=== PATIENT | female | born 1990 | race Two or more races ===

== ENCOUNTER 2024-01-16 12:52 | Observation (INO) | payer OTHER | END 2024-01-16 15:13 | disposition home or self-care (01) | LOC: LDRP 12:52 | PROVIDERS: ADMIT Obstetrics & Gynecology; ATTEND Obstetrics & Gynecology | DX: O24.419 Gestational diabetes mellitus in pregnancy, unspecified control (principal); O99.323 Drug use complicating pregnancy, third trimester; F12.90 Cannabis use, unspecified, uncomplicated; Z3A.36 36 weeks gestation of pregnancy | CPT/HCPCS: 59025; 76818; 81002; 82962; 94760; G0378 ==

== ENCOUNTER 2024-02-06 11:39 | Observation (INO) | payer OTHER ==
[2024-02-06] MEDS ORDERED: PREN-96 PO (11:50)
== END 2024-02-06 13:33 | disposition home or self-care (01) ==
LOC: LDRP 11:39
PROVIDERS: ADMIT Obstetrics & Gynecology; ATTEND Obstetrics & Gynecology
DX: O24.419 Gestational diabetes mellitus in pregnancy, unspecified control (principal); O99.323 Drug use complicating pregnancy, third trimester; F12.90 Cannabis use, unspecified, uncomplicated; Z3A.39 39 weeks gestation of pregnancy
CPT/HCPCS: 59025; 76818; 81002; 82948; 82962; 94760; G0378

== ENCOUNTER 2024-02-09 10:41 | Observation (INO) | payer OTHER ==
[~2024-02-09 10:41] MED LIST: PREN-96 PO
== END 2024-02-09 12:36 | disposition home or self-care (01) ==
LOC: LDRP 10:41 → UNDOADMOB 10:41 → LDRP 10:52 → UNDODISOB 12:36
PROVIDERS: ADMIT Obstetrics & Gynecology; ATTEND Obstetrics & Gynecology
DX: O48.0 Post-term pregnancy (principal); O36.63X0 Maternal care for excessive fetal growth, third trimester, not applicable or unspecified; O24.419 Gestational diabetes mellitus in pregnancy, unspecified control; O99.324 Drug use complicating childbirth; F12.90 Cannabis use, unspecified, uncomplicated; Z3A.40 40 weeks gestation of pregnancy
CPT/HCPCS: 59025; 76805; 76818; 81002; 82948; 82962; G0378

== ENCOUNTER 2024-02-11 11:51 | Observation (INO) | payer OTHER | END 2024-02-11 13:32 | disposition home or self-care (01) | LOC: LDRP 11:51 | PROVIDERS: ADMIT Obstetrics & Gynecology; ATTEND Obstetrics & Gynecology | DX: O24.419 Gestational diabetes mellitus in pregnancy, unspecified control (principal); O36.63X9 Maternal care for excessive fetal growth, third trimester, other fetus; O62.9 Abnormality of forces of labor, unspecified; Z3A.40 40 weeks gestation of pregnancy | CPT/HCPCS: 59025; 76818; 81002; 82948; 82962; 94760; G0378 ==

== ENCOUNTER 2024-02-13 12:05 | Observation (INO) | payer OTHER | END 2024-02-13 13:48 | disposition home or self-care (01) | LOC: UNDOADMOB 12:05 → LDRP 12:05 → UNDODISOB 13:48 | PROVIDERS: ADMIT Obstetrics & Gynecology; ATTEND Obstetrics & Gynecology | DX: O24.419 Gestational diabetes mellitus in pregnancy, unspecified control (principal); O36.63X0 Maternal care for excessive fetal growth, third trimester, not applicable or unspecified; O09.513 Supervision of elderly primigravida, third trimester; Z3A.40 40 weeks gestation of pregnancy | CPT/HCPCS: 59025; 76818; 81002; 82948; 82962; 94760; G0378 ==

== ENCOUNTER 2024-02-15 11:14 | Observation (INO) | payer OTHER | END 2024-02-15 12:40 | disposition home or self-care (01) | LOC: LDRP 11:14 → UNDOADMOB 11:14 → LDRP 11:25 → UNDODISOB 12:40 | PROVIDERS: ADMIT Obstetrics & Gynecology; ATTEND Obstetrics & Gynecology | DX: O48.0 Post-term pregnancy (principal); O24.419 Gestational diabetes mellitus in pregnancy, unspecified control; O99.323 Drug use complicating pregnancy, third trimester; F12.90 Cannabis use, unspecified, uncomplicated; Z3A.40 40 weeks gestation of pregnancy | CPT/HCPCS: 59025; 76818; 81002; 82948; 82962; 94760; G0378 ==

== ENCOUNTER 2024-02-17 13:07 | Observation (INO) | payer OTHER | END 2024-02-17 14:38 | disposition home or self-care (01) | LOC: LDRP 13:07 | PROVIDERS: ADMIT Obstetrics & Gynecology; ATTEND Obstetrics & Gynecology | DX: O48.0 Post-term pregnancy (principal); O24.419 Gestational diabetes mellitus in pregnancy, unspecified control; O36.63X0 Maternal care for excessive fetal growth, third trimester, not applicable or unspecified; Z3A.41 41 weeks gestation of pregnancy | CPT/HCPCS: 76818; 82962; G0378; 59025; 81002; 82948; 94760 ==